=== PATIENT | male | born 1960 | race Two or more races ===

== ENCOUNTER 2019-04-07 06:13 | Inpatient (IN) | payer OTHER ==
[~2019-04-07] VITALS: Ht 182.9 cm; Wt 102.7 kg
[2019-04-07] MEDS ORDERED: METF500T17 PO (06:25)
[2019-04-07] MEDS ORDERED: stomach med (06:26)
[2019-04-07] MEDS ORDERED: GLIP5TAB10 PO (06:26)
[2019-04-07] MEDS ORDERED: FAMOTIDINE 20 MG/2 ML IVP ONE (07:00)
[2019-04-07] MEDS ORDERED: SODIUM CHLORIDE FLUSH 10ML SYR IVF ONE (07:00)
[2019-04-07] MEDS ORDERED: ONDANSETRON 2MG/ML, 2ML IVPush ONE ×2 (07:00→10:00)
--- NOTE | 2019-04-07 07:00 | NUR ---
ASSUMED CARE OF PT AT THIS TIME.
[2019-04-07] MEDS ORDERED: ONDANSETRON 2MG/ML, 2ML ONE ×3 (07:05→14:03)
[2019-04-07] MEDS ORDERED: FAMOTIDINE 20 MG/2 ML ONE (07:06)
[2019-04-07] MEDS ORDERED: HYDROmorphone 2 MG/ML, 1ML ONE ×2 (07:06→08:40)
[2019-04-07] MEDS ORDERED: FAMOTIDINE 20 MG TABLET ONE (07:06)
[2019-04-07] MEDS: HYDROmorphone 2 MG/ML, 1ML IVPush PRN ×2 (07:12→08:46)
--- NOTE | 2019-04-07 07:19 | NUR ---
PT MEDICATED FOR PAIN AND NAUSEA. PT REPORTS HIS PAIN TO BE A 10. AND PT STATE THAT THE PT HAS NO PRIOR HX OF HTN. PT IS CALM AND ANSWERS QUESTIONS APPROPRIATELY. POC DISCUSSED WITH PT AND , THEY VERBALIZE UNDERSTANDING.
--- NOTE | 2019-04-07 07:28 | NUR ---
PT O2 SAT DROPPED TO 85, PT PLACED ON 2 LITERS. PT O2 SAT IS NOW MID 90'S AND HOLDING.
[2019-04-07 07:36] LABS: BASOPHILS # (AUTO) 0.02 x10^3/uL (0-0.1); BASOPHILS % (AUTO) 0 % (0-1); EOSINOPHILS # (AUTO) 0.06 x10^3/uL (0-0.4); EOSINOPHILS % (AUTO) 1 % (1-7); LYMPHOCYTES # (AUTO) 1.35 x10^3/uL (1-3.4); LYMPHOCYTES % (AUTO) 19 % (22-44); MD NO; MEAN CORPUSCULAR HGB CONC 32.5 g/dL (33.2-36.2); MEAN CORPUSCULAR VOLUME 82.8 fL (81-97); MEAN PLATELET VOLUME 7.8 fL (7.4-10.4); MONOCYTES # (AUTO) 0.18 x10^3/uL (0.2-0.8); MONOCYTES % (AUTO) 3 % (2-9); NEUTROPHILS # (AUTO) 5.39 x10^3/uL (1.8-6.8); NEUTROPHILS % (AUTO) 77 % (42-75); PLATELET COUNT 289 x10^3/uL (130-400); RED BLOOD COUNT 4.72 x10^6/uL (4.38-5.82); RED CELL DISTRIBUTION WIDTH 14.1 % (9.4-14.8)
[2019-04-07 07:40] LABS: MICROSCOPIC AUTO
[2019-04-07 07:42] LABS: INTERNATIONAL NORMALIZED RATIO 0.95 (0.93-1.1)
[2019-04-07 07:45] LABS: ALANINE AMINOTRANSFERASE 34 U/L (12-78); ALBUMIN 3.6 g/dL (3.4-5.0); ANION GAP 8 mmol/L (5-15); CALCIUM 9.2 mg/dL (8.5-10.1); CHLORIDE 104 mmol/L (98-107); CREATININE 1.06 mg/dL (0.7-1.3)
[2019-04-07 07:47] LABS: ALKALINE PHOSPHATASE 60 U/L (45-117); BILIRUBIN,TOTAL 0.3 mg/dL (0.2-1.0); TOTAL PROTEIN 8.1 g/dL (6.4-8.2)
[2019-04-07 08:10] LABS: CULTURE INDICATED? NO
[2019-04-07] MEDS ORDERED: OMNIPAQUE 350 MG/ML, 100ML BOTTLE ONE (08:22)
--- NOTE | 2019-04-07 08:40 | NUR ---
PT REPORTS ABD PAIN IS AT AN 8/10, DENIES NAUSEA. INFORMED FAMILY AND PT THAT WE WILL GIVE ADDITIONAL PAIN MEDICATION. FAMILY AGREES WITH POC.
--- NOTE | 2019-04-07 08:49 | NUR ---
PT MEDICATED FOR PAIN WITH DILAUDID. PT STATES HE "FEELS REALLY BAD". PT ON 2 LITERS O2, SAT IS STABLE IN THE HIGH 90'S.
[2019-04-07] MEDS ORDERED: PROMETHAZINE 25 MG/ML, 1ML IM ONE (09:30)
--- NOTE | 2019-04-07 09:51 | NUR ---
Pt states pain improved after medications, denies other needs.
--- NOTE | 2019-04-07 09:59 | NUR ---
No blood cultures needed prior to abx per Dr. Rhodes.
[2019-04-07] MEDS ORDERED: PIPERACILLIN/TAZO/PMX 3.375GM 50 ML IV ONE (10:00)
--- NOTE | 2019-04-07 10:04 | NUR ---
REPORT GIVEN TO ROSANGELA.
--- NOTE | 2019-04-07 10:09 | NUR ---
PT REPORT FROM JORGE L ARNOLD. PT CARE TO BE ASSUMED.
--- NOTE | 2019-04-07 10:34 | NUR ---
DR PITT BS
--- NOTE | 2019-04-07 10:36 | NUR ---
CALLED OR RE: PT'S CURRENT IV (20G LT HAND). PER JORGE L SIDDIQUI, KEEP SITE; IF OR NEEDS SOMETHING DIFFERENT, THEY'LL TAKE CARE OF IT.
[2019-04-07] MEDS ORDERED: METOPROLOL 1 MG/ML, 5ML ONE (10:37)
[2019-04-07] MEDS ORDERED: PROMETHAZINE 25 MG/ML, 1ML ONE (10:42)
[2019-04-07] MEDS ORDERED: PIPERACILLIN/TAZO/PMX 3.375GM 50 ML ONE (10:42)
--- NOTE | 2019-04-07 11:16 | NUR ---
ZOFRAN, PHENERGAN AND ZOSYN GIVEN PER EMAR. ZOSYN INFUSING AT 100ML/HR VIA PUMP; IV SITE PATENT.
[2019-04-07] MEDS: LACTATED RINGERS 1,000 ML IV SCH ×2 (11:52→22:34)
[2019-04-07] MEDS ORDERED: BUPIVACAINE/EPI 0.5% 1:200K ONE (12:09)
[2019-04-07] MEDS ORDERED: MIDAZOLAM 1 MG/ML, 2ML ONE (12:38)
[2019-04-07] MEDS ORDERED: FENTANYL PF 250 MCG/5ML ONE (12:38)
[2019-04-07] MEDS ORDERED: BUPIVACAINE/EPI 0.5% 1:200K INFIL ONE (13:21)
[2019-04-07] MEDS ORDERED: OXYcodone 5 MG/5 ML ORAL.SOL UDC PO PRN (13:30)
[2019-04-07] MEDS ORDERED: DIAZEPAM 5 MG/ML, 2ML IVPush PRN (13:30)
[2019-04-07] MEDS ORDERED: FENTANYL PF 100 MCG/2ML IV PRN (13:30)
[2019-04-07] MEDS ORDERED: ALBUTEROL SULFATE 2.5 MG/3 ML NPPB PRN (13:30)
[2019-04-07] MEDS ORDERED: MEPERIDINE/PF 25MG/0.5ML IVPush PRN (13:30)
[2019-04-07] MEDS ORDERED: LABETALOL 5MG/ML, 20ML IV PRN (13:30)
[2019-04-07] MEDS ORDERED: PROMETHAZINE 25 MG/ML, 1ML IV PRN (13:30)
[2019-04-07] MEDS ORDERED: ACETAMINOPHEN 325 MG TABLET PO PRN ×2 (13:30→14:30)
[2019-04-07] MEDS ORDERED: KETOROLAC 30 MG/1 ML IV PRN (13:30)
[2019-04-07] MEDS ORDERED: HYDROmorphone 2 MG/ML, 1ML IVPush PRN (13:30)
[2019-04-07] MEDS ORDERED: DEXAMETHASONE 4 MG/ML, 1ML ONE (14:03)
[2019-04-07] MEDS ORDERED: NEOSTIGMINE 1 MG/ML, 10ML ONE (14:03)
[2019-04-07] MEDS ORDERED: GLYCOPYRROLATE 0.2MG/1ML, 5ML ONE (14:03)
[2019-04-07] MEDS ORDERED: SUCCINYLCHOLINE 20 MG/ML, 10ML ONE (14:03)
[2019-04-07] MEDS ORDERED: ROCURONIUM 10MG/ML,5ML ONE (14:03)
[2019-04-07] MEDS ORDERED: PROPOFOL 10 MG/ML, 20ML ONE (14:03)
[2019-04-07] MEDS ORDERED: CEFAZOLIN 1,000 MG ONE (14:03)
[2019-04-07] MEDS ORDERED: hydrALAzine 20 MG/ML, 1ML ONE (14:22)
[2019-04-07] MEDS ORDERED: OXYcodone 5 MG/5 ML ORAL.SOL UDC ONE (14:22)
[2019-04-07] MEDS: hydrALAzine 20 MG/ML, 1ML IV PRN ×2 (14:25→14:53)
[2019-04-07] MEDS ORDERED: ONDANSETRON 2MG/ML, 2ML IVPush PRN (14:30)
[2019-04-07] MEDS ORDERED: morphine SULFATE 10 MG/ML, 1ML IVPush PRN (14:30)
[2019-04-07] MEDS ORDERED: LABETALOL 5 MG/ML SYRINGE IVPush PRN (14:30)
[2019-04-07] MEDS: INSULIN LISPRO 100 UNITS/ML, PEN SQ-INSULIN SCH ×2 (16:02→21:57)
[2019-04-07] MEDS: METRONIDAZOLE PMX 500MG/100ML 100 ML IVPB SCH (16:03)
[2019-04-07 19:28] VITALS: BP 133/71
[2019-04-07] MEDS ORDERED: GLIP10TA13 PO (19:42)
[2019-04-07] MEDS: CEFOTETAN PMX 1GM/50ML 50 ML IVPB SCH (19:44)
[2019-04-08] MEDS: METRONIDAZOLE PMX 500MG/100ML 100 ML IVPB SCH ×4 (00:15→23:45)
[2019-04-08 01:08] VITALS: BP 141/70
[2019-04-08 04:52] VITALS: BP 129/68
[2019-04-08] MEDS: LACTATED RINGERS 1,000 ML IV SCH ×3 (06:26→22:12)
[2019-04-08] MEDS: CEFOTETAN PMX 1GM/50ML 50 ML IVPB SCH ×2 (07:35→19:25)
[2019-04-08] MEDS: INSULIN LISPRO 100 UNITS/ML, PEN SQ-INSULIN SCH ×4 (07:36→20:49)
[2019-04-08 07:47] VITALS: BP 121/68
[2019-04-08] MEDS: OXYcodone/APAP 7.5/325MG TABLET PO PRN ×3 (10:38→22:12)
[2019-04-08 14:39] VITALS: BP 141/74
[2019-04-08 19:58] VITALS: BP 132/76
[2019-04-08 23:54] VITALS: BP 119/68
[2019-04-09 01:49] VITALS: BP 101/59
[2019-04-09] MEDS: LACTATED RINGERS 1,000 ML IV SCH ×2 (06:27→08:35)
[2019-04-09] MEDS: CEFOTETAN PMX 1GM/50ML 50 ML IVPB SCH (07:24)
[2019-04-09] MEDS: INSULIN LISPRO 100 UNITS/ML, PEN SQ-INSULIN SCH ×2 (07:25→10:35)
[2019-04-09 07:40] VITALS: BP 146/79
[2019-04-09] MEDS: METRONIDAZOLE PMX 500MG/100ML 100 ML IVPB SCH (08:35)
[2019-04-09] MEDS ORDERED: OXYC-306 PO (09:17)
[2019-04-09] MEDS ORDERED: AMOX1TAB64 PO (09:18)
[2019-04-09] MEDS ORDERED: METR500T PO (09:18)
[2019-04-09] MEDS: OXYcodone/APAP 7.5/325MG TABLET PO PRN (10:34)
== END 2019-04-09 11:19 | disposition home or self-care (01) | DRG 419 ==
LOC: ED 10:45 → EDIP 10:46 → ED 11:31 → 4NOR 11:38 → DCLOUNGE 04-09 11:07
PROVIDERS: ADMIT Surgery; ATTEND Surgery
PROC: 0FT44ZZ Resection of Gallbladder, Percutaneous Endoscopic Approach (ICD-10-PCS; principal; 2019-04-07 13:15)
DX: K80.00 Calculus of gallbladder with acute cholecystitis without obstruction (principal); E11.9 Type 2 diabetes mellitus without complications; K66.0 Peritoneal adhesions (postprocedural) (postinfection); K82.8 Other specified diseases of gallbladder; E66.9 Obesity, unspecified; Z79.84 Long term (current) use of oral hypoglycemic drugs; Z68.30 Body mass index [BMI] 30.0-30.9, adult
CPT/HCPCS: 36415; 99285; J3490; 74177; 80053; 81001; 82962; 83690; 85025; 85610; 88304; 93005; 96372; 96374; 96375; G0378; J0690; J1100; J1170; J2250; J2405; J2543; J2550; J2704; J2710; J3010; Q9967; J0330; J0360; J1815; J7120